=== PATIENT | female | born 1970 | race Caucasian/White ===

== ENCOUNTER 2017-04-08 07:48 | Emergency (ER) | payer SELFPAY ==
[2017-04-08 07:58] VITALS: BP 136/82; PULSE 60; RESP 18; TEMP 98.2; O2SAT 99
--- NOTE | 2017-04-08 08:11 | C.PDOC ---
History Of Present Illness 47-year-old female, presents to the emergency department with complaints of left ear pain x1 week. Patient went to see her doctor, who gave her an unknown medication (not abx), that she has been using with limited relief. Patient notes she also took PO abx, with no relief, resulting in her coming to the ED for evaluation. (-)fevers (-)chills (-)chest pain (-)shortness of breath (-) dizziness, or any other associated symptoms. No other complaints at this time. Time Seen by Provider: 04/08/17 08:01 Chief Complaint (Nursing): ENT Problem History Per: Patient History/Exam Limitations: None Onset/Duration Of Symptoms: Days Current Symptoms Are (Timing): Still Present Past Medical History Reviewed: Historical Data, Nursing Documentation, Vital Signs Vital Signs: Last Vital Signs Temp 98.2 F 04/08/17 07:57 Pulse 60 04/08/17 07:57 Resp 18 04/08/17 08:31 BP 136/82 04/08/17 07:57 Pulse Ox 99 04/08/17 09:48 - Medical History PMH: HTN - [facility] Procedures CLOSURE SKIN & SUBCUTANEOUS NEC (03/26/13) Family History: States: Unknown Family Hx - Social History Hx Tobacco Use: No Hx Alcohol Use: No Hx Substance Use: No - Immunization History Hx Influenza Vaccination: No Review Of Systems Except As Marked, All Systems Reviewed And Found Negative. Constitutional: Negative for: Fever, Chills Cardiovascular: Negative for: Chest Pain Gastrointestinal: Negative for: Nausea, Vomiting Physical Exam - Physical Exam Appears: Non-toxic, No Acute Distress Skin: Warm, Dry, No Rash Head: Atraumatic, Normacephalic Eye(s): bilateral: Normal Inspection, PERRL, EOMI Ear(s): Left: Other (tenderness to tragus. no mastoid tenderness. some exudates. TM not visualized.), Right: Normal Nose: Normal Oral Mucosa: Moist Lips: Normal Appearing Throat: No Erythema, No Exudate Neck: Normal ROM, Supple Lymphatic: Normal Exam Chest: Symmetrical Cardiovascular: Rhythm Regular, No Murmur Respiratory: Normal Breath Sounds, No Accessory Muscle Use Neurological/Psych: Oriented x3, Normal Speech ED Course And Treatment O2 Sat by Pulse Oximetry: 99 Progress Note: Patient is resting comfortably, tolerating PO, and is afebrile at this time. Patient will be discharge home, and instructed to follow up with his/her physician in 1-2 days without fail. Patient was instructed to return for any worsening symptoms, persistent fever, neck pain, rash, abdominal pain, or vomiting. Disposition - Disposition Referrals: Carlo Hamilton MD [Staff Provider] - Disposition: HOME/ ROUTINE Disposition Time: 08:09 Condition: STABLE Additional Instructions: Follow up with referral physician in 1-2 days without fail for further evaluation. Take medications as prescribed. Return to the emergency department at any time if symptoms persist or worsen. Prescriptions: Neomycin/Polymyxin/Hydrocortis [Cortisporin Otic Susp] 4 drop OT QID #1 bottle Instructions: Otitis Externa (ED) Print Language: BAHAMIAN - Clinical Impression Clinical Impression: Otitis externa - Scribe Statement The provider has reviewed the documentation as recorded by the Alejandroibkristi Cervantes All medical record entries made by the Alejandroibkristi were at my direction and personally dictated by me. I have reviewed the chart and agree that the record accurately reflects my personal performance of the history, physical exam, medical decision making, and the department course for this patient. I have also personally directed, reviewed, and agree with the discharge instructions and disposition.
== END 2017-04-08 08:33 | disposition home or self-care (01) ==
LOC: C.ER 07:48
DX: H60.92 Unspecified otitis externa, left ear (principal)